=== PATIENT | female | born 1940 | race Caucasian/White ===

== ENCOUNTER 2019-11-16 16:51 | Inpatient (IN) | payer OTHER ==
[~2019-11-16] VITALS: Ht 160 cm; Wt 53.6 kg
[~2019-11-16 16:51] MED LIST: DAYPRO600 M1 PO; INDOCIN25 MG PO; KEFLEX500 MG PO; LEVOFLOXACIN500 MG PO; MEDROL DOSEPAK4 MG PO; ROBITUSSIN-AC 160 ML PO; VICODIN 5/500 505 MG PO
[2019-11-16 16:56] VITALS: BP 127/74
[2019-11-16 17:25] VITALS: BP 86/54
[2019-11-16 17:42] VITALS: BP 96/58
[2019-11-16 17:45] VITALS: BP 100/70
[2019-11-16 18:00] LABS: HEMOGLOBIN 9.6 g/dl (12.0-16.0); MEAN CELL VOLUME 104.2 fl (81.0-99.0); MEAN CORPUSCULAR HGB 33.3 pg (27.0-31.0); MEAN PLATELET VOLUME 11.1 fl (9.6-12.3); PLATELET COUNT AUTOMATED 213 10*3/uL (130-400); RED BLOOD COUNT 2.88 10*6/uL (4.10-5.10); RED CELL DISTRI WIDTH 13.7 % (0-14.5); WHITE BLOOD COUNT 19.1 10*3/uL (4.8-10.8)
[2019-11-16 18:16] LABS: ALBUMIN 2.3 gm/dl (3.1-4.5); ALKALINE PHOSPHATASE 77 U/L (45-117); BUN 60 mg/dl (7-24); CHLORIDE 109 mmol/L (98-107); CREATININE 1.02 mg/dL (0.55-1.02); POTASSIUM 4.2 mmol/L (3.5-5.1); SGOT/AST 10 IU/L (3-35); SGPT/ALT 16 U/L (12-78); SODIUM 142 mmol/L (136-145); TOTAL PROTEIN 5.4 gm/dL (6.4-8.2)
[2019-11-16 18:17] LABS: ACT PARTIAL THROMBO TIME 21.9 SECONDS (20.0-32.1); INTERNATIONAL NORM RATIO 1.1 (2.0-3.5)
[2019-11-16 18:19] LABS: TROPONIN I < 0.015 ng/ml (<0.045)
[2019-11-16 18:27] LABS: PLATELET SUFFICIENCY NORMAL (NORMAL); TOTAL CELLS COUNTED 100 #CELLS
[2019-11-16 19:11] VITALS: BP 118/68
[2019-11-16] MEDS ORDERED: METHOTREXATE S2.5 M1 PO (22:46)
[2019-11-16] MEDS ORDERED: METOPROLOL SUCC25 M2 PO (22:46)
[2019-11-16] MEDS ORDERED: TRAMADOL HCL50 MG PO (22:47)
[2019-11-16] MEDS ORDERED: ALEVE220 M1 PO (22:49)
[2019-11-17] VITALS (10 sets, daily range): BP systolic 90–151; BP diastolic 54–69
[2019-11-17 00:37] LABS: BILIRUBIN NEGATIVE (NEGATIVE); BLOOD 1+ (NEGATIVE); CLARITY SL CLOUDY (CLEAR); COLOR YELLOW (YELLOW); GLUCOSE NEGATIVE (NEGATIVE); KETONE NEGATIVE (NEGATIVE); LEUKO ESTERASE NEGATIVE (NEGATIVE); NITRITE NEGATIVE (NEGATIVE); PH 5.5 (5.0-9.0); SPECIFIC GRAVITY 1.025 (1.005-1.030); UROBILINOGEN 0.2 E.U./dl (0.2-1.0)
[2019-11-17 00:45] LABS: BACTERIA 1+; EPITHELIAL CELLS 15-20
[2019-11-17 07:54] LABS: BASO % 0.2 % (0.0-1.0); EOS # 0.1 10*3/uL (0.0-0.4); EOS % 0.6 % (1.0-4.0); HEMATOCRIT 24.3 % (37.0-47.0); HEMOGLOBIN 7.8 g/dl (12.0-16.0); LYMPH # 2.2 10*3/uL (1.3-4.4); LYMPH % 20.2 % (27.0-41.0); MEAN CELL VOLUME 102.5 fl (81.0-99.0); MEAN CORPUSCULAR HGB 32.9 pg (27.0-31.0); MEAN CORPUSCULAR HGB CONC 32.1 g/dl (33.0-37.0); MEAN PLATELET VOLUME 11.9 fl (9.6-12.3); MONO # 1.1 10*3/uL (0.1-1.0); MONO % 9.7 % (3.0-9.0); NEUT # 7.4 10*3/uL (2.3-7.9); NEUT % 67.1 % (47.0-73.0); PLATELET COUNT AUTOMATED 173 10*3/uL (130-400); RED BLOOD COUNT 2.37 10*6/uL (4.10-5.10); RED CELL DISTRI WIDTH 13.8 % (0-14.5)
[2019-11-17 07:57] LABS: CHLORIDE 114 mmol/L (98-107); CHOLESTEROL 116 mg/dL (<200); CREATININE 0.58 mg/dL (0.55-1.02); PHOSPHOROUS 2.1 mg/dL (2.5-4.9); POTASSIUM 3.7 mmol/L (3.5-5.1); SODIUM 142 mmol/L (136-145); TRIGLYCERIDES 144 mg/dl (<150); VLDL CHOLESTEROL 29 mg/dL (6-40)
[2019-11-17 08:05] LABS: FREE T4 1.26 ng/dl (0.76-1.46); HDL CHOLESTEROL 33 mg/dl (40-60); LDL CHOLESTEROL 54 mg/dL (9-159); THYROID STIM HORMONE (HS) 0.628 uIU/ml (0.358-4.75)
[2019-11-17 08:06] LABS: BUN 35 mg/dl (7-24)
[2019-11-17 08:18] LABS: VITAMIN D, 25-HYDROXY 54.1 ng/mL (30-100)
[2019-11-18] VITALS: BP 119/52
[2019-11-18 00:23] LABS: BASO % 0.2 % (0.0-1.0); EOS # 0.2 10*3/uL (0.0-0.4); HEMATOCRIT 26.5 % (37.0-47.0); HEMOGLOBIN 8.6 g/dl (12.0-16.0); LYMPH # 1.7 10*3/uL (1.3-4.4); LYMPH % 17.3 % (27.0-41.0); MEAN CORPUSCULAR HGB 32.5 pg (27.0-31.0); MEAN CORPUSCULAR HGB CONC 32.5 g/dl (33.0-37.0); MEAN PLATELET VOLUME 11.5 fl (9.6-12.3); MONO % 10.5 % (3.0-9.0); NEUT # 6.6 10*3/uL (2.3-7.9); NEUT % 67.6 % (47.0-73.0); PLATELET COUNT AUTOMATED 162 10*3/uL (130-400); RED BLOOD COUNT 2.65 10*6/uL (4.10-5.10); RED CELL DISTRI WIDTH 14.3 % (0-14.5); WHITE BLOOD COUNT 9.7 10*3/uL (4.8-10.8)
[2019-11-18 04:00] VITALS: BP 116/60
[2019-11-18 04:48] LABS: BASO % 0.3 % (0.0-1.0); EOS # 0.3 10*3/uL (0.0-0.4); EOS % 2.9 % (1.0-4.0); HEMATOCRIT 26.5 % (37.0-47.0); HEMOGLOBIN 8.7 g/dl (12.0-16.0); LYMPH # 1.3 10*3/uL (1.3-4.4); LYMPH % 14.8 % (27.0-41.0); MEAN CELL VOLUME 100.4 fl (81.0-99.0); MEAN CORPUSCULAR HGB CONC 32.8 g/dl (33.0-37.0); MEAN PLATELET VOLUME 10.5 fl (9.6-12.3); MONO # 0.9 10*3/uL (0.1-1.0); MONO % 10.9 % (3.0-9.0); NEUT # 5.9 10*3/uL (2.3-7.9); NEUT % 68.4 % (47.0-73.0); PLATELET COUNT AUTOMATED 149 10*3/uL (130-400); RED BLOOD COUNT 2.64 10*6/uL (4.10-5.10); RED CELL DISTRI WIDTH 14.4 % (0-14.5); WHITE BLOOD COUNT 8.6 10*3/uL (4.8-10.8)
[2019-11-18 05:02] LABS: CHLORIDE 115 mmol/L (98-107); CREATININE 0.53 mg/dL (0.55-1.02); POTASSIUM 3.8 mmol/L (3.5-5.1); SODIUM 144 mmol/L (136-145)
[2019-11-18 05:08] LABS: BUN 12 mg/dl (7-24)
[2019-11-18 07:40] VITALS: BP 117/55
[2019-11-18 12:00] VITALS: BP 112/64
[2019-11-18 16:00] VITALS: BP 107/63
[2019-11-18 20:00] VITALS: BP 108/50
[2019-11-19] VITALS: BP 105/45
[2019-11-19 04:00] VITALS: BP 111/51
[2019-11-19 06:49] LABS: BASO % 0.2 % (0.0-1.0); EOS # 0.2 10*3/uL (0.0-0.4); EOS % 2.6 % (1.0-4.0); HEMATOCRIT 25.5 % (37.0-47.0); HEMOGLOBIN 8.1 g/dl (12.0-16.0); LYMPH # 1.6 10*3/uL (1.3-4.4); LYMPH % 17.5 % (27.0-41.0); MEAN CELL VOLUME 101.6 fl (81.0-99.0); MEAN CORPUSCULAR HGB 32.3 pg (27.0-31.0); MEAN CORPUSCULAR HGB CONC 31.8 g/dl (33.0-37.0); MEAN PLATELET VOLUME 11.1 fl (9.6-12.3); MONO % 10.8 % (3.0-9.0); NEUT # 6.1 10*3/uL (2.3-7.9); NEUT % 67.3 % (47.0-73.0); PLATELET COUNT AUTOMATED 152 10*3/uL (130-400); RED BLOOD COUNT 2.51 10*6/uL (4.10-5.10); RED CELL DISTRI WIDTH 14.5 % (0-14.5); WHITE BLOOD COUNT 9.1 10*3/uL (4.8-10.8)
[2019-11-19 07:13] LABS: ALBUMIN 2.2 gm/dl (3.1-4.5); BUN 5 mg/dl (7-24); CHLORIDE 113 mmol/L (98-107); POTASSIUM 3.3 mmol/L (3.5-5.1); SODIUM 145 mmol/L (136-145)
[2019-11-19 07:20] LABS: ALKALINE PHOSPHATASE 64 U/L (45-117); CREATININE 0.59 mg/dL (0.55-1.02); PHOSPHOROUS 1.5 mg/dL (2.5-4.9); SGOT/AST 12 IU/L (3-35); SGPT/ALT 13 U/L (12-78); TOTAL PROTEIN 4.9 gm/dL (6.4-8.2)
[2019-11-19 08:00] VITALS: BP 115/48
[2019-11-19 12:00] VITALS: BP 108/37
[2019-11-19 16:00] VITALS: BP 137/64
[2019-11-19 20:00] VITALS: BP 110/51
[2019-11-20] VITALS: BP 112/56
[2019-11-20 04:00] VITALS: BP 127/58
[2019-11-20 05:12] LABS: BASO # 0.1 10*3/uL (0.0-0.1); BASO % 0.6 % (0.0-1.0); EOS # 0.3 10*3/uL (0.0-0.4); EOS % 2.8 % (1.0-4.0); HEMATOCRIT 26.3 % (37.0-47.0); HEMOGLOBIN 8.4 g/dl (12.0-16.0); LYMPH # 1.5 10*3/uL (1.3-4.4); LYMPH % 16.9 % (27.0-41.0); MEAN CELL VOLUME 103.5 fl (81.0-99.0); MEAN CORPUSCULAR HGB 33.1 pg (27.0-31.0); MEAN CORPUSCULAR HGB CONC 31.9 g/dl (33.0-37.0); MEAN PLATELET VOLUME 10.9 fl (9.6-12.3); MONO # 0.8 10*3/uL (0.1-1.0); MONO % 9.2 % (3.0-9.0); NEUT # 6.2 10*3/uL (2.3-7.9); NEUT % 69.3 % (47.0-73.0); PLATELET COUNT AUTOMATED 167 10*3/uL (130-400); RED BLOOD COUNT 2.54 10*6/uL (4.10-5.10); RED CELL DISTRI WIDTH 14.6 % (0-14.5); WHITE BLOOD COUNT 8.9 10*3/uL (4.8-10.8)
[2019-11-20 05:29] LABS: ALBUMIN 2.2 gm/dl (3.1-4.5); ALKALINE PHOSPHATASE 69 U/L (45-117); BUN 6 mg/dl (7-24); CHLORIDE 110 mmol/L (98-107); CREATININE 0.55 mg/dL (0.55-1.02); POTASSIUM 3.5 mmol/L (3.5-5.1); SGOT/AST 13 IU/L (3-35); SGPT/ALT 15 U/L (12-78); SODIUM 145 mmol/L (136-145)
[2019-11-20 08:00] VITALS: BP 117/58
[2019-11-20 12:00] VITALS: BP 109/57
[2019-11-20 16:00] VITALS: BP 116/53
[2019-11-20 19:44] VITALS: BP 126/52
[2019-11-21] VITALS: BP 127/61
[2019-11-21 04:00] VITALS: BP 119/66; BP 137/66
[2019-11-21 04:46] LABS: BASO % 0.3 % (0.0-1.0); EOS # 0.3 10*3/uL (0.0-0.4); EOS % 2.7 % (1.0-4.0); HEMATOCRIT 27.5 % (37.0-47.0); HEMOGLOBIN 8.8 g/dl (12.0-16.0); LYMPH # 1.8 10*3/uL (1.3-4.4); LYMPH % 17.4 % (27.0-41.0); MEAN CELL VOLUME 102.6 fl (81.0-99.0); MEAN CORPUSCULAR HGB 32.8 pg (27.0-31.0); MEAN PLATELET VOLUME 10.6 fl (9.6-12.3); MONO # 0.9 10*3/uL (0.1-1.0); MONO % 8.4 % (3.0-9.0); NEUT % 69.8 % (47.0-73.0); PLATELET COUNT AUTOMATED 177 10*3/uL (130-400); RED BLOOD COUNT 2.68 10*6/uL (4.10-5.10); RED CELL DISTRI WIDTH 14.5 % (0-14.5); WHITE BLOOD COUNT 10.1 10*3/uL (4.8-10.8)
[2019-11-21 05:02] LABS: ALBUMIN 2.2 gm/dl (3.1-4.5); ALKALINE PHOSPHATASE 80 U/L (45-117); BUN 7 mg/dl (7-24); CHLORIDE 105 mmol/L (98-107); CREATININE 0.62 mg/dL (0.55-1.02); POTASSIUM 3.7 mmol/L (3.5-5.1); SGOT/AST 11 IU/L (3-35); SGPT/ALT 12 U/L (12-78); SODIUM 141 mmol/L (136-145); TOTAL PROTEIN 5.3 gm/dL (6.4-8.2)
[2019-11-21 08:00] VITALS: BP 122/53
[2019-11-21 12:00] VITALS: BP 133/52
[2019-11-21 16:00] VITALS: BP 134/59
[2019-11-21 20:00] VITALS: BP 133/63
[2019-11-22] VITALS: BP 143/71
[2019-11-22 08:00] VITALS: BP 138/74
[2019-11-22 12:00] VITALS: BP 131/89
[2019-11-22 16:00] VITALS: BP 137/68
[2019-11-22 20:00] VITALS: BP 159/61
[2019-11-23] VITALS: BP 122/69
[2019-11-23 06:57] LABS: BASO % 0.5 % (0.0-1.0); EOS # 0.2 10*3/uL (0.0-0.4); EOS % 2.6 % (1.0-4.0); HEMOGLOBIN 9.2 g/dl (12.0-16.0); LYMPH # 1.3 10*3/uL (1.3-4.4); LYMPH % 15.4 % (27.0-41.0); MEAN CELL VOLUME 102.8 fl (81.0-99.0); MEAN CORPUSCULAR HGB 32.6 pg (27.0-31.0); MEAN CORPUSCULAR HGB CONC 31.7 g/dl (33.0-37.0); MEAN PLATELET VOLUME 10.3 fl (9.6-12.3); MONO # 0.8 10*3/uL (0.1-1.0); MONO % 9.6 % (3.0-9.0); NEUT % 70.9 % (47.0-73.0); PLATELET COUNT AUTOMATED 203 10*3/uL (130-400); RED BLOOD COUNT 2.82 10*6/uL (4.10-5.10); RED CELL DISTRI WIDTH 14.3 % (0-14.5); WHITE BLOOD COUNT 8.4 10*3/uL (4.8-10.8)
[2019-11-23 07:15] LABS: BUN 8 mg/dl (7-24); CHLORIDE 105 mmol/L (98-107); CREATININE 0.65 mg/dL (0.55-1.02); POTASSIUM 3.6 mmol/L (3.5-5.1); SODIUM 141 mmol/L (136-145)
[2019-11-23 08:00] VITALS: BP 127/62
[2019-11-23 12:00] VITALS: BP 130/64
[2019-11-23 18:00] VITALS: BP 114/58
[2019-11-23 20:00] VITALS: BP 122/63
[2019-11-24] VITALS: BP 130/72
[2019-11-24 08:00] VITALS: BP 157/69
[2019-11-24 12:00] VITALS: BP 155/64
[2019-11-24 16:00] VITALS: BP 144/67
[2019-11-24 20:00] VITALS: BP 138/50
[2019-11-25] VITALS: BP 132/62
[2019-11-25 08:00] VITALS: BP 146/63
[2019-11-25 12:00] VITALS: BP 140/66
[2019-11-25 16:00] VITALS: BP 138/69
[2019-11-25 20:00] VITALS: BP 119/72
[2019-11-26] VITALS: BP 135/76
[2019-11-26 08:00] VITALS: BP 146/72
[2019-11-26 16:00] VITALS: BP 128/64
[2019-11-26 20:00] VITALS: BP 136/64
[2019-11-27] VITALS: BP 129/72
[2019-11-27 08:00] VITALS: BP 117/69
[2019-11-27 12:00] VITALS: BP 143/59
[2019-11-27] MEDS ORDERED: Carafate1 GM/10 ML PO (13:07)
[2019-11-27] MEDS ORDERED: PROTONIX40 MG PO (13:07)
[2019-11-27] MEDS ORDERED: HYDROCODONE-AC1 EAC1 PO (13:07)
== END 2019-11-27 14:30 | disposition other institution (70) | DRG 377 ==
LOC: ED 16:51 → 5E 18:46 → 4E 18:46 → EDHOLD 18:46 → 4E 19:29 → ICCU 11-17 13:59 → 5E 11-21 11:10
PROVIDERS: Emergency Medicine; Internal Medicine; Student in an Organized Health Care Education/Training Program; ADMIT Internal Medicine
PROC: 30233N1 Transfusion of Nonautologous Red Blood Cells into Peripheral Vein, Percutaneous Approach (ICD-10-PCS; principal; 2019-11-17)
PROC: 0W3P8ZZ Control Bleeding in Gastrointestinal Tract, Via Natural or Artificial Opening Endoscopic (ICD-10-PCS; principal; 2019-11-17)
PROC: 0DB98ZX Excision of Duodenum, Via Natural or Artificial Opening Endoscopic, Diagnostic (ICD-10-PCS; principal; 2019-11-17)
DX: K26.4 Chronic or unspecified duodenal ulcer with hemorrhage (principal); E43 Unspecified severe protein-calorie malnutrition; R65.10 Systemic inflammatory response syndrome (SIRS) of non-infectious origin without acute organ dysfunction; D53.9 Nutritional anemia, unspecified; I10 Essential (primary) hypertension; E87.8 Other disorders of electrolyte and fluid balance, not elsewhere classified; R73.9 Hyperglycemia, unspecified; E83.41 Hypermagnesemia; M06.9 Rheumatoid arthritis, unspecified; E83.39 Other disorders of phosphorus metabolism; E87.6 Hypokalemia; G89.29 Other chronic pain; Z96.1 Presence of intraocular lens; R19.5 Other fecal abnormalities; K44.9 Diaphragmatic hernia without obstruction or gangrene; K29.70 Gastritis, unspecified, without bleeding; K22.70 Barrett's esophagus without dysplasia; T39.395A Adverse effect of other nonsteroidal anti-inflammatory drugs [NSAID], initial encounter; Y92.89 Other specified places as the place of occurrence of the external cause; Z90.710 Acquired absence of both cervix and uterus; Z68.20 Body mass index [BMI] 20.0-20.9, adult; Z80.0 Family history of malignant neoplasm of digestive organs; Z98.49 Cataract extraction status, unspecified eye